=== PATIENT | female | born 1950 | race Two or more races ===

== ENCOUNTER 2019-03-11 15:39 | Inpatient (IN) | payer OTHER ==
[~2019-03-11] VITALS: Ht 152.4 cm; Wt 39.5 kg
[2019-04-12] MEDS ORDERED: SYNTHROID88 MCG PO (12:03)
[2019-04-12] MEDS ORDERED: PROBIOTIC1 EAC4 PO (12:03)
[2019-04-12] MEDS ORDERED: CHILDREN'S ASPI81 MG PO (12:03)
[2019-04-21] MEDS ORDERED: INTESTINEX680 M1 PO (09:34)
[2019-04-21] MEDS ORDERED: DIPHENOXYLATE-1 EACH PO (09:34)
[2019-04-21] MEDS ORDERED: OXYC1TAB9 PO (09:35)
== END 2019-04-21 13:52 | disposition home or self-care (01) | DRG 331 ==
LOC: SURH 04-18 06:08 → O/R 04-18 06:08 → SURG 04-18 07:00 → SURH 04-18 11:47
PROVIDERS: ADMIT Surgery
PROC: 0D1B4Z4 Bypass Ileum to Cutaneous, Percutaneous Endoscopic Approach (ICD-10-PCS; 2019-04-18)
PROC: 0DJD8ZZ Inspection of Lower Intestinal Tract, Via Natural or Artificial Opening Endoscopic (ICD-10-PCS; 2019-04-18)
PROC: 0DTN4ZZ Resection of Sigmoid Colon, Percutaneous Endoscopic Approach (ICD-10-PCS; principal; 2019-04-18 07:00)
DX: C20 Malignant neoplasm of rectum (principal); K63.89 Other specified diseases of intestine; R63.4 Abnormal weight loss; R19.4 Change in bowel habit; E03.8 Other specified hypothyroidism; E11.40 Type 2 diabetes mellitus with diabetic neuropathy, unspecified; Z79.4 Long term (current) use of insulin

== ENCOUNTER 2019-08-15 07:37 | Outpatient (CLI) | payer OTHER ==
[~2019-08-15 07:37] MED LIST: CHILDREN'S ASPI81 MG PO; DIPHENOXYLATE-1 EACH PO; INTESTINEX680 M1 PO; OXYC1TAB9 PO; PROBIOTIC1 EAC4 PO; SYNTHROID88 MCG PO
== END 2019-08-15 07:42 | disposition home or self-care (01) ==
LOC: RX STUDY 07:37
DX: C20 Malignant neoplasm of rectum (principal); R19.4 Change in bowel habit; R63.4 Abnormal weight loss

== ENCOUNTER 2019-09-06 09:45 | Inpatient (IN) | payer OTHER ==
[~2019-09-06] VITALS: Ht 149.9 cm; Wt 75.0 kg
[2019-09-15] MEDS ORDERED: INTESTINEX680 M1 PO (09:22)
[2019-09-15] MEDS ORDERED: INTEGRA F CAPS1 EACH PO (09:22)
== END 2019-09-15 10:39 | disposition home or self-care (01) | DRG 331 ==
LOC: O/R 09-12 07:00 → SURH 09-12 08:35 → O/R 09-12 08:35 → SURH 09-12 14:56
PROVIDERS: ADMIT Surgery; ATTEND Surgery
PROC: 0DSB4ZZ Reposition Ileum, Percutaneous Endoscopic Approach (ICD-10-PCS; principal; 2019-09-12 07:00)
DX: C20 Malignant neoplasm of rectum (principal); R19.4 Change in bowel habit; R63.4 Abnormal weight loss; E03.8 Other specified hypothyroidism; G62.89 Other specified polyneuropathies; N18.2 Chronic kidney disease, stage 2 (mild); D64.9 Anemia, unspecified